=== PATIENT | male | born 1980 | race Caucasian/White ===

== ENCOUNTER 2018-06-07 09:54 | Day surgery (SDC) | payer OTHER ==
[~2018-06-07 09:54] MED LIST: CEFAZOLIN 1 GM INJ; PROPOFOL 200 MG INJ
[2018-06-07] MEDS ORDERED: CEFAZOLIN 2 GM/50 ML (PMX) 50 ML IVPB (10:00)
[2018-06-07] MEDS ORDERED: SOD CHLORIDE 0.9% 1,000 ML IV (10:00)
[2018-06-07 11:18] LABS: ADD MAN DIFF? NO
[2018-06-07] MEDS ORDERED: FENTAnyl 50 MCG/ML VIAL ×2 (11:34→13:19)
[2018-06-07 11:35] LABS: BASOPHIL # 0.1 10^3/ul (0.0-0.1); BASOPHILS % 0.6 % (0.0-2.0); EOSINOPHILS # 0.2 10^3/ul (0.0-0.5); EOSINOPHILS % 2.5 % (0.0-7.0); HEMATOCRIT 42.3 % (42.0-52.0); HEMOGLOBIN 14.2 g/dl (14.0-18.0); LYMPHOCYTES # 2.4 10^3/ul (0.8-2.9); LYMPHOCYTES % 30.2 % (15.0-51.0); MEAN CORPUSCULAR HEMOGLOBIN 29.5 pg (29.0-33.0); MEAN CORPUSCULAR HGB CONC 33.6 g/dl (32.0-37.0); MEAN CORPUSCULAR VOLUME 87.9 fl (82.0-101.0); MEAN PLATELET VOLUME 9.2 fl (7.4-10.4); MONOCYTE # 0.8 10^3/ul (0.3-0.9); MONOCYTES % 9.3 % (0.0-11.0); NEUTROPHIL # 4.6 10^3/ul (1.6-7.5); PLATELET COUNT 306 10^3/UL (140-415); RED BLOOD COUNT 4.81 10^6/ul (4.70-6.10); RED CELL DISTRIBUTION WIDTH 12.5 % (11.5-14.5)
[2018-06-07 11:35] LABS: WHITE BLOOD COUNT 8.1 10^3/ul (4.8-10.8)
[2018-06-07] MEDS ORDERED: MIDAZOLAM 1 MG/ML 2 ML INJ (11:35)
[2018-06-07 11:39] LABS: INR 0.92; PROTIME 12.4 Sec (11.9-14.9)
[2018-06-07 11:47] LABS: ALANINE AMINOTRANSFERASE 32 IU/L (13-69); ALBUMIN 4.3 g/dl (3.3-4.9); ALBUMIN/GLOBULIN RATIO 1.38; ALKALINE PHOSPHATASE 104 IU/L (42-121); ANION GAP 17 (8-16); ASPARTATE AMINO TRANSFERASE 25 IU/L (15-46); BILIRUBIN,INDIRECT 0.2 mg/dl (0-1.1); BILIRUBIN,TOTAL 0.2 mg/dl (0.2-1.3); BLOOD UREA NITROGEN 12 mg/dl (7-20); CALCIUM 9.2 mg/dl (8.4-10.2); CARBON DIOXIDE 25 mmol/L (21-31); CHLORIDE 107 mmol/L (97-110); CREATININE 0.79 mg/dl (0.61-1.24); GLUCOSE 88 mg/dl (70-220); POTASSIUM 4.5 mmol/L (3.5-5.1); SODIUM 144 mmol/L (135-144); TOTAL PROTEIN 7.4 g/dl (6.1-8.1)
[2018-06-07] MEDS ORDERED: LIDOCAINE 2% (SDV) 5 ML INJ (12:46)
[2018-06-07] MEDS ORDERED: PROPOFOL 20 ML (12:46)
[2018-06-07] MEDS: BUPIVACAINE 0.5% (SDV) 30 ML INJ (13:12)
[2018-06-07] MEDS: LIDOCAINE 1%/EPI 30 ML INJ (13:12)
[2018-06-07] MEDS ORDERED: HYDROmorphONE 2 MG/ML SYG (13:35)
[2018-06-07] MEDS ORDERED: HYDROmorphONE 0.5 MG/0.5 ML SYG IV (14:01)
[2018-06-07] MEDS ORDERED: HYDROmorphONE 0.5 MG/0.5 ML SYG (14:02)
[2018-06-07] MEDS ORDERED: hydrALAzine 20 MG INJ (14:38)
[2018-06-07] MEDS: hydrALAzine 20 MG INJ IV (14:47)
[2018-06-07] MEDS: HYDROCODONE/APAP (5/325) TAB PO (15:23)
== END 2018-06-07 16:00 | disposition home or self-care (01) ==
LOC: SDS 09:54
DX: M79.5 Residual foreign body in soft tissue (principal)
CPT/HCPCS: 25248; 73080-LT; 80053; 85025; 85610; 85730; 88300